=== PATIENT | female | born 1940 | race African-American/Black ===

== ENCOUNTER 2022-07-11 19:26 | Inpatient (IN) | payer MEDICARE, OTHER ==
[~2022-07-11] VITALS: Ht 165.1 cm; Wt 60.8 kg
[2022-07-11] MEDS ORDERED: IV NS 0.9% 500 ML BAG IV ONE (20:00)
[2022-07-11 20:08] LABS: HEMOGLOBIN 7.6 g/dL (11.5-14.8); WHITE BLOOD COUNT (AUTO) 6.8 K/uL (4.3-11.0)
--- NOTE | 2022-07-11 20:15 | NUR ---
X-ray tech at bedside
[2022-07-11 20:20] LABS: ALANINE AMINOTRANSFERASE 17 U/L (12-78); ALBUMIN 2.4 g/dL (3.4-5.0); ALKALINE PHOSPHATASE 113 U/L (46-116); ASPARTATE AMINOTRANSFERASE 11 U/L (15-37); BILIRUBIN,DIRECT 0.2 mg/dL (0.0-0.2); BILIRUBIN,TOTAL 0.5 mg/dL (0.2-1.0); CALCIUM, SERUM 7.7 mg/dL (8.5-10.1); CARBON DIOXIDE 32 mmol/L (21-32); CHLORIDE 97 mmol/L (98-107); CREATININE 1.8 mg/dL (0.6-1.3); GLUCOSE 156 mg/dL (74-106); POTASSIUM 3.1 mmol/L (3.5-5.1); SODIUM SERUM 133 mmol/L (136-145); UREA NITROGEN, BLOOD 14 mg/dL (7-18)
--- NOTE | 2022-07-11 20:40 | NUR ---
Relayed lab result to Dr. Tolliver Trop 264, Potassium 3.1, Na 133 nno at this time
[2022-07-11 20:42] LABS: BASOPHILS % (AUTO) 0.6 % (0.0-2.0); EOSINOPHILS % (AUTO) 1.1 % (0.0-6.0); HEMATOCRIT 24 % (33-45); LYMPHOCYTES % (AUTO) 14.7 % (20.0-44.0); MEAN CORPUSCULAR HGB CONC 32 g/dl (31.0-36.0); MEAN CORPUSCULAR VOLUME 98 fL (82-100); MONOCYTES # (AUTO) 0.6 K/uL (0.1-1.30); MONOCYTES % (AUTO) 8.9 % (2.0-12.0); NEUTROPHILS # (AUTO) 5.1 K/uL (1.8-8.9); NEUTROPHILS % (AUTO) 74.7 % (43.0-81.0); PLATELET COUNT (AUTO) 95 K/uL (150-450); RED BLOOD CELL COUNT(AUTO) 2.46 MIL/uL (4.0-5.2)
[2022-07-11] MEDS ORDERED: ASPIRIN 81 MG TAB.CHEW PO ONE (21:00)
[2022-07-11] MEDS ORDERED: ASPIRIN 81 MG TAB.CHEW ONE (21:12)
--- NOTE | 2022-07-11 21:50 | NUR ---
CALLED [facility], PAGED HOSPITALIST FOR ADMISSION
--- NOTE | 2022-07-11 22:00 | NUR ---
COVID SWAB DONE
[2022-07-11] MEDS ORDERED: POTASSIUM CHLORIDE 20 MEQ TAB.PRT.SR PO ONE ×2 (22:30→22:32)
--- NOTE | 2022-07-11 23:12 | NUR ---
RM 310-2
--- NOTE | 2022-07-11 23:20 | NUR ---
REPORT GIVEN TO ARMANI PEREZ
[2022-07-11] MEDS ORDERED: Z GUARD REMEDY 4 OZ OINT TP PRN (23:30)
[2022-07-11] MEDS ORDERED: MAG HYDROX/AL HYDROX/SIMETH 30 ML UDC PO PRN (23:30)
[2022-07-11] MEDS ORDERED: ACETAMINOPHEN 325 MG TABLET PO PRN (23:30)
[2022-07-11] MEDS ORDERED: MAGNESIUM HYDROXIDE 30 ML UDC PO PRN (23:30)
[2022-07-11] MEDS ORDERED: ONDANSETRON HCL/PF 4 MG/2 ML VIAL IVP PRN (23:30)
[2022-07-11] MEDS ORDERED: ZOLPIDEM TARTRATE 5 MG TABLET PO PRN (23:30)
[2022-07-12] VITALS (7 sets, daily range): BP systolic 98–115; BP diastolic 49–57
--- NOTE | 2022-07-12 00:15 | NUR ---
Transfer patient to room 312-2 with acls protocol
--- NOTE | 2022-07-12 00:30 | NUR ---
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
[2022-07-12] MEDS ORDERED: *INSULIN REGULAR(HUMULIN R)HUM 100 UNIT/ML VIAL SQ PRN (01:00)
[2022-07-12] MEDS ORDERED: DEXTROSE 50%-WATER 50 ML DISP.SYRIN IV PRN (01:00)
[2022-07-12] MEDS: BLOOD SUGAR DIAGNOSTIC 1 EACH STRIP VI SCH ×4 (06:45→22:14)
--- NOTE | 2022-07-12 06:57 | NUR ---
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
--- NOTE | 2022-07-12 07:30 | NUR ---
PATIENT RECEIVED RESTING COMFORTABLY IN BED. NO S/S OR C/O PAIN OR DISTRESS NOTED. SIDE RAILS UP X2, CALL LIGHT LEFT WITHIN REACH. WILL CONTINUE PLAN OF CARE.
[2022-07-12] MEDS: ASPIRIN 81 MG TAB.CHEW PO SCH (09:48)
[2022-07-12] MEDS: PANTOPRAZOLE 40 MG TABLET.DR PO SCH (09:48)
[2022-07-12 10:19] LABS: CALCIUM, SERUM 7.8 mg/dL (8.5-10.1); CARBON DIOXIDE 26 mmol/L (21-32); CHLORIDE 96 mmol/L (98-107); CREATININE 2.3 mg/dL (0.6-1.3); GLUCOSE 154 mg/dL (74-106); PHOSPHORUS 2.2 mg/dL (2.5-4.9); POTASSIUM 3.4 mmol/L (3.5-5.1); SODIUM SERUM 127 mmol/L (136-145); UREA NITROGEN, BLOOD 21 mg/dL (7-18)
[2022-07-12] MEDS ORDERED: RISP0.2515 PO (11:08)
[2022-07-12] MEDS ORDERED: ACET-2605 PO (11:08)
[2022-07-12] MEDS ORDERED: ALBU2.5V38 IH (11:08)
[2022-07-12] MEDS ORDERED: EPOE40003 SQ (11:08)
[2022-07-12] MEDS ORDERED: AMIO200T5 PO (11:08)
[2022-07-12] MEDS ORDERED: PANT40TA2 PO (11:08)
[2022-07-12] MEDS ORDERED: FOLI0.8T2 PO (11:08)
[2022-07-12] MEDS ORDERED: BISO5TAB20 PO (11:08)
[2022-07-12] MEDS ORDERED: ATOR40TA PO (11:08)
[2022-07-12] MEDS ORDERED: ALBU18HF2 IH (11:08)
[2022-07-12] MEDS ORDERED: FURO80TA85 PO (11:08)
[2022-07-12] MEDS ORDERED: SEVE800T8 PO (11:08)
[2022-07-12] MEDS ORDERED: BUPR100T13 PO (11:08)
[2022-07-12] MEDS ORDERED: TRAZ-182 PO (11:08)
[2022-07-12] MEDS ORDERED: LISI2.5T2 PO (11:08)
[2022-07-12] MEDS ORDERED: CHOL100043 PO (11:08)
[2022-07-12] MEDS ORDERED: APIX2.5T PO (11:08)
[2022-07-12 11:09] LABS: THYROID STIMULATING HORMONE 6.302 uIU/mL (0.358-3.74)
[2022-07-12 11:23] LABS: BASOPHILS % (AUTO) 0.5 % (0.0-2.0); HEMATOCRIT 23 % (33-45); HEMOGLOBIN 7.5 g/dL (11.5-14.8); LYMPHOCYTES # (AUTO) 0.9 K/uL (0.8-4.8); LYMPHOCYTES % (AUTO) 14.5 % (20.0-44.0); MEAN CORPUSCULAR HGB CONC 32 g/dl (31.0-36.0); MEAN CORPUSCULAR VOLUME 97 fL (82-100); MONOCYTES # (AUTO) 0.5 K/uL (0.1-1.30); MONOCYTES % (AUTO) 7.5 % (2.0-12.0); NEUTROPHILS # (AUTO) 4.9 K/uL (1.8-8.9); NEUTROPHILS % (AUTO) 76.5 % (43.0-81.0); PLATELET COUNT (AUTO) 91 K/uL (150-450); RED BLOOD CELL COUNT(AUTO) 2.38 MIL/uL (4.0-5.2); WHITE BLOOD COUNT (AUTO) 6.4 K/uL (4.3-11.0)
--- NOTE | 2022-07-12 12:00 | NUR ---
PT REFUSED MED INSULIN. BS 150. NURSING TEACHING PERFORMED REGARDING THE SIGNIFICANCE OF MEDICATION BUT PATIENT CONTINUES TO REFUSE. WILL CONTINUE TO MONITOR.
[2022-07-12 12:05] LABS: BASOPHILS % (MANUAL) 0 % (0.0-2.0); EOSINOPHILS % (MANUAL) 1 % (0-4); LYMPHOCYTES % (MANUAL) 12 % (16-48); MONOCYTES % (MANUAL) 8 % (0-11.0); NEUTROPHILS % (MANUAL) 79 (42-76)
[2022-07-12] MEDS ORDERED: K PHOS NEUTRAL 250 MG TABLET PO ONE (14:00)
[2022-07-12] MEDS ORDERED: EPOETIN ALFA (4000 UNIT) 4,000 UNIT/ML VIAL SQ PRN (14:00)
--- NOTE | 2022-07-12 17:30 | NUR ---
PT REFUSED MED INSULIN. BS 160. NURSING TEACHING PERFORMED REGARDING THE SIGNIFICANCE OF MEDICATION BUT PATIENT CONTINUES TO REFUSE. WILL CONTINUE TO MONITOR.
[2022-07-12] MEDS: SEVELAMER CARBONATE 800 MG TABLET PO SCH (17:32)
[2022-07-12] MEDS: buPROPion 100 MG TABLET PO SCH (17:32)
[2022-07-12] MEDS ORDERED: ATORVASTATIN 40 MG TABLET PO SCH (18:00)
--- NOTE | 2022-07-12 18:32 | NUR ---
CHANGE OF SHIFT REPORT PATIENT RESTING COMFORTABLY IN BED. NO S/S OR C/O PAIN OR DISTRESS NOTED. SIDE RAILS UP X2, CALL LIGHT LEFT WITHIN REACH. PT KEPT CLEAN, DRY, AND COMFORTABLE. NO SIGNIFICANT CHANGSE SINCE PREVIOUS SHIFT. WILL GIVE REPORT TO BERTRAM. ARMANI.
--- NOTE | 2022-07-12 19:26 | NUR ---
RN OPENING NOTE; RECEIVED PT IN BED AWAKED AOX4 ABLE TO MAKE NEEDS KNOWN,ON RM AIR JAJA SAT 98%,NO SOB/DISTRESS NOTED,NO COMPLAIN OF PAIN/DISCOMFORT AT THIS TIME,IV ACCESS RAC 20G INTACT AND PATENT,SAFETY MEASURE IN PLACE,CALL LIGHT WITHIN REACH,WILL CONTINUE TO MONITOR.
[2022-07-12] MEDS: INSULIN REGULAR, HUMAN 100 UNIT/ML 3 ML VIAL SQ PRN (21:28)
[2022-07-12] MEDS ORDERED: TRAZODONE 50 MG TABLET PO SCH (22:00)
[2022-07-12] MEDS ORDERED: risperiDONE 0.25 MG TABLET PO SCH (22:00)
[2022-07-13] VITALS: BP 108/55
[2022-07-13 05:00] VITALS: BP 94/50
[2022-07-13 06:26] LABS: BASOPHILS # (AUTO) 0.1 K/uL (0.0-0.2); BASOPHILS % (AUTO) 0.8 % (0.0-2.0); EOSINOPHILS % (AUTO) 1.3 % (0.0-6.0); HEMATOCRIT 24 % (33-45); HEMOGLOBIN 7.7 g/dL (11.5-14.8); LYMPHOCYTES # (AUTO) 1.3 K/uL (0.8-4.8); LYMPHOCYTES % (AUTO) 17.8 % (20.0-44.0); MEAN CORPUSCULAR HGB CONC 33 g/dl (31.0-36.0); MEAN CORPUSCULAR VOLUME 98 fL (82-100); MONOCYTES # (AUTO) 0.7 K/uL (0.1-1.30); MONOCYTES % (AUTO) 9.1 % (2.0-12.0); NEUTROPHILS # (AUTO) 5.3 K/uL (1.8-8.9); PLATELET COUNT (AUTO) 93 K/uL (150-450); RED BLOOD CELL COUNT(AUTO) 2.41 MIL/uL (4.0-5.2); WHITE BLOOD COUNT (AUTO) 7.5 K/uL (4.3-11.0)
--- NOTE | 2022-07-13 06:45 | NUR ---
RN CLOSING NOTE; PATIENT IN BED AWAKED AOX4 ABLE TO MAKE NEEDS KNOWN,ON RM AIR JAJA WELL SAT 96%,NO SOB/DISTRESS NOTED,NO COMPLAIN OF PAIN/DISCOMFORT DURING SHIFT,DUE MEDS GIVEN ORDER,ALL NEEDS ATTENDED,KEPT CLEANED AND DRY AT ALL TIME,,IV ACCESS RAC 20G INTACT AND PATENT,SAFETY MEASURE IN PLACE,CALL LIGHT WITHIN REACH,WILL ENDORSED TO NEXT SHIFT.
[2022-07-13 06:53] LABS: ALANINE AMINOTRANSFERASE 14 U/L (12-78); ALKALINE PHOSPHATASE 110 U/L (46-116); ASPARTATE AMINOTRANSFERASE 12 U/L (15-37); BILIRUBIN,TOTAL 0.3 mg/dL (0.2-1.0); CALCIUM, SERUM 7.5 mg/dL (8.5-10.1); CARBON DIOXIDE 25 mmol/L (21-32); CHLORIDE 96 mmol/L (98-107); CREATININE 2.6 mg/dL (0.6-1.3); GLUCOSE 68 mg/dL (74-106); POTASSIUM 3.6 mmol/L (3.5-5.1); SODIUM SERUM 128 mmol/L (136-145); TOTAL PROTEIN, SERUM 4.6 g/dL (6.4-8.2); UREA NITROGEN, BLOOD 25 mg/dL (7-18)
--- NOTE | 2022-07-13 07:27 | NUR ---
RN NOTE; PT BLOOD SUGAR WAS 45,I GIVE D10 IV WIDE OPEN RECHECK 57,BAG NOT DONE YET STILL RUNNING.ENDORSED TO JULIETH LOMELI.
[2022-07-13] MEDS ORDERED: PANTOPRAZOLE 40 MG TABLET.DR PO SCH (07:30)
[2022-07-13 08:00] VITALS: BP 96/56
[2022-07-13] MEDS: PANTOPRAZOLE 40 MG TABLET.DR PO SCH (08:12)
[2022-07-13] MEDS: SEVELAMER CARBONATE 800 MG TABLET PO SCH ×2 (08:15→13:06)
[2022-07-13] MEDS: ASPIRIN 81 MG TAB.CHEW PO SCH (08:15)
[2022-07-13] MEDS: buPROPion 100 MG TABLET PO SCH (08:15)
[2022-07-13] MEDS: BLOOD SUGAR DIAGNOSTIC 1 EACH STRIP VI SCH ×2 (08:21→11:44)
--- NOTE | 2022-07-13 08:22 | NUR ---
BLOOD SUGAR RECHECKED, 113. STABLE, NO COMPLAINTS.
[2022-07-13] MEDS ORDERED: EPOETIN ALFA (4000 UNIT) 4,000 UNIT/ML VIAL SQ SCH (08:43)
[2022-07-13] MEDS ORDERED: FUROSEMIDE 40 MG TABLET PO SCH (09:00)
[2022-07-13] MEDS ORDERED: BISOPROLOL FUMARATE 5 MG TABLET PO SCH (09:00)
[2022-07-13] MEDS ORDERED: AMIODARONE HCL 200 MG TABLET PO SCH (09:00)
[2022-07-13] MEDS: INSULIN REGULAR, HUMAN 100 UNIT/ML 3 ML VIAL SQ PRN (11:45)
[2022-07-13 12:00] VITALS: BP 90/40
--- NOTE | 2022-07-13 14:38 | NUR ---
PATIENT IS A/O X3. SATURATING WELL ON RA. BLOOD SUGAR IMPROVED. PATIENT REFUSED SKIN PHOTOS TO BE TAKEN. SAFETY MEASURES MAINTAINED. BED IN LOWEST POSITION, BRAKES LOCKED. SIDE RAILS UP X2. CALL LIGHT WITHIN REACH. DISCHARGE INSTRUCTIONS AND HEALTH TEACHINGS GIVEN, PT VERBALIZED UNDERSTANDING. PATIENT DOES NOT HAVE ANY ORDER TODAY FOR HEMODIALYSIS. DR ANGELIQUE Hannon WAS MADE AWARE. PATIENT IS SCHEDULED TO HAVE HER HEMODIALYSIS TOMORROW IN HER CLINIC. DR. MERINO AGREED. MULTIPLE ATTEMPTS TO CALL [facility]. NO ANSWER. [phone] Addendum: 07/13/22 at 1539 by JULIETH ROACH RN REPORT GIVEN. [id number]
== END 2022-07-13 15:43 | DRG 640 ==
LOC: ER 19:27 → TELE 23:23
PROVIDERS: ADMIT Student in an Organized Health Care Education/Training Program
DX: E87.1 Hypo-osmolality and hyponatremia (principal); N18.6 End stage renal disease; E44.0 Moderate protein-calorie malnutrition; I13.2 Hypertensive heart and chronic kidney disease with heart failure and with stage 5 chronic kidney disease, or end stage renal disease; J98.11 Atelectasis; J90 Pleural effusion, not elsewhere classified; I50.9 Heart failure, unspecified; D63.8 Anemia in other chronic diseases classified elsewhere; E11.22 Type 2 diabetes mellitus with diabetic chronic kidney disease; E87.6 Hypokalemia; Z20.822 Contact with and (suspected) exposure to COVID-19; I25.10 Atherosclerotic heart disease of native coronary artery without angina pectoris; Z95.5 Presence of coronary angioplasty implant and graft; Z99.2 Dependence on renal dialysis; E78.5 Hyperlipidemia, unspecified; Z88.0 Allergy status to penicillin; Z88.8 Allergy status to other drugs, medicaments and biological substances; D69.6 Thrombocytopenia, unspecified; M89.8X9 Other specified disorders of bone, unspecified site; Z79.82 Long term (current) use of aspirin; Z79.899 Other long term (current) drug therapy; R74.8 Abnormal levels of other serum enzymes
CPT/HCPCS: 36415; 71045-TC; 80048-TC; 80053-TC; 80061-TC; 80076-TC; 82728-TC; 82962-TC; 83540-TC; 83735-TC; 84100-TC; 84439-TC; 84443-TC; 84484-TC; 85025-TC; 85730-TC; 86850-TC; 93307-TC; C9803; G0378; J0885; J1815; J7030